=== PATIENT | female | born 1960 | race Caucasian/White ===

== ENCOUNTER 2016-06-21 09:03 | Emergency (ER) | payer SELFPAY ==
[~2016-06-21] VITALS: Ht 162.6 cm; Wt 55.0 kg
[2016-06-21 09:41] VITALS: BP 119/68
[2016-06-21] MEDS ORDERED: LEVO50TA8 PO (09:45)
== END 2016-06-21 11:02 | disposition home or self-care (01) ==
LOC: ER 10:59
DX: B30.9 Viral conjunctivitis, unspecified (principal); E89.0 Postprocedural hypothyroidism; Z90.89 Acquired absence of other organs
CPT/HCPCS: 99282

== ENCOUNTER 2016-12-13 08:20 | Emergency (ER) | payer MEDICAID, OTHER ==
[~2016-12-13] VITALS: Ht 162.6 cm; Wt 55.0 kg
[~2016-12-13 08:20] MED LIST: LEVO50TA8 PO
[2016-12-13] MEDS ORDERED: KETOROLAC 30MG/ML VIAL IM ONE (15:00)
[2016-12-13 15:16] LABS: CLARITY URINE CLEAR (CLEAR); COLOR URINE YELLOW (YELLOW); GLUCOSE URINE NEGATIVE (NEGATIVE); KETONES URINE NEGATIVE (NEGATIVE); LEUKOCYTE ESTERASE URINE NEGATIVE (NEGATIVE); NITRITE URINE NEGATIVE (NEGATIVE); OCCULT BLOOD URINE NEGATIVE (NEGATIVE); PH URINE 5.5 (4.5-8.0); PROTEIN URINE NEGATIVE (NEGATIVE); SPECIFIC GRAVITY URINE 1.023 (1.005-1.030); UROBILINOGEN URINE 0.2 E.U./dL (0.2-1.0)
[2016-12-13 15:40] LABS: HCG SCREEN NEGATIVE
[2016-12-13 17:39] VITALS: BP 132/76
== END 2016-12-13 17:40 | disposition home or self-care (01) ==
LOC: ER 08:58
DX: K40.90 Unilateral inguinal hernia, without obstruction or gangrene, not specified as recurrent (principal); M25.552 Pain in left hip; R20.0 Anesthesia of skin; L40.9 Psoriasis, unspecified; E03.9 Hypothyroidism, unspecified
CPT/HCPCS: 73502; 76830; 76856; 81003; 84703; 93971; 96372; 99285; J1885; Z7610